=== PATIENT | female | born 1945 | race Two or more races ===

== ENCOUNTER 2024-11-25 06:31 | Day surgery (SDC) | payer MEDICARE, MEDICAID ==
[~2024-11-25] VITALS: Ht 152.4 cm; Wt 68.9 kg
[~2024-11-25 06:31] MED LIST: ACET-1304 PO; ALBUAER3 IN; AMBR5TAB3 PO; ATOR-47 PO; ATOR40TA52 PO; B-CO1CAP18 PO; CHOLPOW4 PO; CLOP75TA70 PO; COEN100C15 PO; EMPA1TAB PO; FAMO20TA10 PO; FERR-7 PO; FLUT50SP; GLUC1TAB22 PO; LACTCAP35 OR; LANS30CA57 PO; MAGN400T40 PO; METF-370 PO; MIDO5TAB22 PO; OMEGCAP2 PO; OXYB5SOL PO; POM PO; PREG150C PO; PREN-96 PO; RANO500G PO; ROPI5TAB20 PO; TIZA2CAP7 PO; TRAZ-227 PO; TURM500C3 PO
[2024-11-25] MEDS ORDERED: HEPARIN SODIUM (PORCINE) 5000 UNITS/ML 1ML VIAL ONE (08:03)
[2024-11-25] MEDS ORDERED: VERAPAMIL 2.5MG/ML INJ 2ML VIAL IV ONE (08:03)
[2024-11-25] MEDS ORDERED: MIDAZOLAM HCL 2MG/2ML 2ml VIAL (1mg/ml) ONE (08:04)
[2024-11-25] MEDS ORDERED: fentaNYL CITRATE 100 MCG/2 ML VL ONE (08:04)
[2024-11-25] MEDS ORDERED: LIDOCAINE 2%HCL (LOCAL ANESTH.) INJ 20ML MDV ONE (08:05)
--- NOTE | 2024-11-25 10:57 | DVHOP2 ---
Operative Report Procedures performed: Right and left heart catheterization and bilateral coronary angiogram Moderate sedation Diagnosis: No angiographic evidence for epicardial coronary artery disease (normal coronaries) Normal LVEF, mildly increased LVEDP Normal right-sided pressures Cardiac suggestion for management: Optimized medical therapy Lifestyle and risk factor modifications Findings: PCW: 11/13/10 mm Hg PA: 34/11/21 mm Hg RV: 38/1/8 mm Hg RA: 9/7/5 mm Hg Cardiac output: 3.53 liters/minute Cardiac index: 0.14 liter/minute per meter LV: 169/6/17 mm Hg LVEF of 65% There was no transaortic valve pressure gradient Left main: Left main was coming off the left sinus of Valsalva. There was no angiographic evidence of disease in left main. LAD: LAD was coming off the left main. It provided a large diagonal. LAD throughout its course and branches did not reveal any angiographic evidence of disease. Ramus intermedius: Ramus intermedius was a small-sized vessel with no angiographic evidence of disease and came off the left main. LCX: LCX was a large vessel, coming off the left main. It provided a large OM1, small OM2 and a large OM3. LCX throughout its course and branches did not reveal any angiographic evidence of disease. RCA: RCA was coming off the right sinus of Valsalva. It was a dominant vessel and provided RPDA. RCA throughout its course and branches did not reveal any angiographic evidence of disease. Presentation: Patient is a 79-year-old female who presented to the office with shortness of breath. Past medical history includes GERD, diabetes mellitus, anemia, hypertension, hyperlipidemia, thrombocytosis, history of vitamin B12 deficiency, degenerative disc disease, IBS, lung nodule, carotid plaques, Mejia's cyst and reported pulmonary hypertension. Echocardiogram of August 2024 had reported ejection fraction of 65-70%, mild concentric left ventricular hypertrophy, pseudo normal LV filling, moderate biatrial enlargement, mild MR, moderate TR and right ventricular systolic pressure of 72 mm Hg. Nuclear stress test of January 2024 had revealed normal perfusion. Patient was sent for right and left heart catheterization. Procedure: After obtaining informed consent, the patient was brought to the syrup machine laborer. She was prepped and draped in sterile fashion. There was previously put venous access sheath in right antecubital area. We used a wire to upgrade to a 7 [place] sheath to perform right heart catheterization. A 6 [place] Pound- Arlene catheter was used to perform right heart catheterization (obtaining pressures and calculating cardiac output, thermodilution technique). We did use a run-through wire to guide the Pound Arlene catheter into the central venous vessels to perform right heart catheterization. At this point, moderate sedation was given (1 mg of Versed and 25 mcg of fentanyl. We did attempt to get the right radial artery for left heart catheterization. We did use ultrasound guidance and micropuncture but we were unsuccessful to access the right radial artery (too small). We decided to proceed and get the right femoral artery for access. Under fluoroscopy guidance and using a micropuncture sheath, we accessed the right femoral artery. After angiographically proving a good access point, the micropuncture sheath was exchanged over the wire to a 6 [place] femoral sheath. Six [place] JL4 diagnostic catheter was used to perform left coronary angiography. A 6 [place] JR4 diagnostic catheter was used to perform right coronary angiography. A 6 [place] pigtail catheter was used to perform left heart catheterization (obtaining pressures and performing left ventriculography). There was no indication for any transcatheter revascularization. There was no dissection/hematoma/perforation. Patient tolerated the procedure with no complication. Right femoral artery access site was managed by deploying an Angio-Seal device. Right antecubital access was managed by manual pressure. Fluoroscopy time: 11.6 contrast: 50 mL of MARTHA Hoover MD Nov 25, 2024 10:56
== END 2024-11-25 13:19 | disposition home or self-care (01) ==
LOC: CATH 06:31
PROVIDERS: ATTEND Internal Medicine Cardiovascular Disease
DX: R06.02 Shortness of breath (principal); I25.10 Atherosclerotic heart disease of native coronary artery without angina pectoris; I08.1 Rheumatic disorders of both mitral and tricuspid valves; I10 Essential (primary) hypertension; I27.20 Pulmonary hypertension, unspecified; E11.9 Type 2 diabetes mellitus without complications; E78.5 Hyperlipidemia, unspecified; K21.9 Gastro-esophageal reflux disease without esophagitis; Z86.2 Personal history of diseases of the blood and blood-forming organs and certain disorders involving the immune mechanism
CPT/HCPCS: 93460; C1760; C1769; C1894; J1644; J2250; J3010; J7030; 99152